=== PATIENT | female | born 1935 | race Caucasian/White ===

== ENCOUNTER 2022-11-16 21:44 | Emergency (ER) | payer MEDICARE, OTHER ==
[~2022-11-16] VITALS: Ht 142.2 cm; Wt 62.6 kg
[2022-11-16] MEDS ORDERED: HYDROMORPHONE 1 MG/1 ML DISP.SYRIN IV ONE (22:00)
[2022-11-16] MEDS ORDERED: ONDANSETRON 4 MG/2 ML VIAL IV ONE (22:00)
[2022-11-16] MEDS ORDERED: CARV3.12 PO (22:01)
[2022-11-16] MEDS ORDERED: APIX2.5T PO (22:01)
[2022-11-16] MEDS ORDERED: QUET25TA PO (22:01)
[2022-11-16] MEDS ORDERED: GABA100C PO (22:01)
[2022-11-16] MEDS ORDERED: LOSA25TA3 PO (22:01)
--- NOTE | 2022-11-16 22:10 | NUR ---
Pt is noted in bed as she came from Home with c/o Blood Pressure in the 200 as now Blood pressure is now in the 180s, also C/O Abdominal pain with history off HTN, [place], ULCER, [place] and pt is spainsh speaking . Pt care continue with MD at bedside as awaits orders.
[2022-11-16 22:27] LABS: HEMATOCRIT 36.5 % (31.2-41.9); MEAN CORPUSCULAR HEMOGLOBIN 30.8 uug (24.7-32.8); MEAN CORPUSCULAR VOLUME 90.9 fL (75.5-95.3); PLATELET COUNT (AUTO) 138 K/uL (179-408)
[2022-11-16] MEDS ORDERED: HYDROMORPHONE 1 MG/1 ML DISP.SYRIN ONE (22:35)
[2022-11-16] MEDS ORDERED: ONDANSETRON 4 MG/2 ML VIAL ONE (22:36)
--- NOTE | 2022-11-16 22:45 | NUR ---
Pt care continue as Dlaudid 0.5mg IVP and Zofrom 4mg IVP given as ordered.
[2022-11-16 22:55] LABS: CARBON DIOXIDE 23 mmol/L (21-32); CHLORIDE 90 mmol/L (98-107); CREATININE 0.5 mg/dL (0.6-1.3); GLUCOSE 115 mg/dL (74-106); POTASSIUM 4.9 mmol/L (3.5-5.1); UREA NITROGEN, BLOOD 11 mg/dL (7-18)
[2022-11-16] MEDS ORDERED: HALOPERIDOL LACTATE 5 MG/1 ML VIAL IV ONE (23:00)
[2022-11-16] MEDS ORDERED: HALOPERIDOL LACTATE 5 MG/1 ML VIAL ONE (23:03)
[2022-11-16 23:04] LABS: ALANINE AMINOTRANSFERASE 11 U/L (14-59); ALKALINE PHOSPHATASE 168 U/L (50-136); ASPARTATE AMINOTRANSFERASE 34 U/L (15-37); BILIRUBIN,DIRECT 0.1 mg/dL (0.0-0.2); BILIRUBIN,TOTAL 0.5 mg/dL (0.2-1.0); TOTAL PROTEIN, SERUM 8.2 g/dL (6.4-8.2)
--- NOTE | 2022-11-16 23:07 | NUR ---
Pt recived Haldol 5mg IVP given as ordered as pt is due for CT. Pt care continue.
[2022-11-16 23:32] LABS: LIPASE 128 U/L (73-393)
--- NOTE | 2022-11-17 01:25 | NUR ---
Pt is more confused , trying to jump off bed and pull out medical Line. Pt care continue as she is now on Soft Restraints Per DR. Delgadillo. Pt care continue.
[2022-11-17] MEDS ORDERED: LORAZEPAM 2 MG/1 ML VIAL IV ONE (01:30)
[2022-11-17] MEDS ORDERED: LABETALOL HCL 100 MG/20 ML VIAL IV ONE (01:30)
[2022-11-17] MEDS ORDERED: IV NS 1000 ML 1,000 ML IV ONE (01:30)
[2022-11-17] MEDS ORDERED: LABETALOL HCL 100 MG/20 ML VIAL ONE (01:35)
[2022-11-17] MEDS ORDERED: LORAZEPAM 2 MG/1 ML VIAL ONE (01:35)
[2022-11-17 01:55] VITALS: BP 216/106
--- NOTE | 2022-11-17 01:58 | NUR ---
Pt care continue as she is been monitor closely with Ativan 0.5mg IVP, Labetalol 10mg IVP and 0.9NS at 125/ML [id number] therapy in progress as she very Anxious with Bllod Pressure in the 200s.
--- NOTE | 2022-11-17 02:32 | NUR ---
Pt full code with soft wrist Restraints in place as Labetalol 10mg IVP and Ativan 0.5mg IVP noted effective with Bloos Pressure now in the 170s while 0.9NS IVF infusing as ordered. Pt care continue.
--- NOTE | 2022-11-17 04:41 | NUR ---
Pt remain on softe wrist Restraints as she is trying to pull out medical Lines. Pt care continue as she is been monitor closely with Carey called in with transferred information that , Pt will be going to [facility] , Room 5316A , under [facility] and called to [phone] with pickup time is 8:45AM BY [facility] .
--- NOTE | 2022-11-17 06:23 | NUR ---
Pt remain monitor with Blood Pressure in the 130s and soft Restraints in place. Pt care continue as she is been monitor.
--- NOTE | 2022-11-17 07:00 | NUR ---
Pt care continue as report is given to the AM receiving nurse.
--- NOTE | 2022-11-17 08:37 | NUR ---
PT WAS TRANSFERED TO [facility], ROOM #[id number], BY [facility]. REPORT WAS GIVEN TO AMBULANCE RN AND TO [facility] RN.
== END 2022-11-17 09:15 | disposition short-term general hospital (02) ==
LOC: ER 21:46
DX: R41.0 Disorientation, unspecified (principal); R51.9 Headache, unspecified; S09.90XA Unspecified injury of head, initial encounter; X58.XXXA Exposure to other specified factors, initial encounter; Y92.89 Other specified places as the place of occurrence of the external cause; Z20.822 Contact with and (suspected) exposure to COVID-19; Z91.013 Allergy to seafood; E87.1 Hypo-osmolality and hyponatremia; D68.2 Hereditary deficiency of other clotting factors; I10 Essential (primary) hypertension; E87.8 Other disorders of electrolyte and fluid balance, not elsewhere classified
CPT/HCPCS: 99285; 70450; 96374; 71045; 96375 ×2; 87426; 80076; 80048; 83690; 85025; 84484 ×2; 36415 ×2; 93005; 74176; 96361; J1630; J2405; J1170; J3490; J2060; A4663; J7040